=== PATIENT | female | born 1950 | race Caucasian/White ===

== ENCOUNTER 2017-12-21 11:02 | Emergency (ER) | payer BC, MEDICARE ==
[2017-12-21] MEDS ORDERED: Sodium Chloride 0.9% 10 ML Syringe FLUSH PRN (11:08)
--- NOTE | 2017-12-21 11:17 | EDM.PDOC ---
ED HPI GENERAL MEDICAL PROBLEM - General Chief Complaint: Neurological Problem Stated Complaint: [facility] Time Seen by Provider: 12/21/17 11:09 Source of Information: Reports: EMS, Family, Old Records History Limitations: Reports: No Limitations - History of Present Illness INITIAL COMMENTS - FREE TEXT/NARRATIVE: 67 yo female presents via EMS with acute onset approx 0930h today of acute confusion and inability to find correct words to say. Has not recognized some family members that she should know, others she does recognize. Has known afib. Is only on ASA for anticoagulation. Vitals stable per EMS. No hx of CVA. last spoke with Jada about 8 pm last night. Saw her walking about the home and dressing as she normally would do about 0800h today. Onset: Today Onset Date: 12/21/17 Onset Time: 09:30 Duration: Minutes:, Constant Location: Reports: Head Quality: Reports: Other (no known pain) Severity: Moderate Improves with: Reports: None Worsens with: Reports: None Context: Reports: Other (PHx of paroxysmal afib) Associated Symptoms: Reports: Confusion, Other (speach deficit). Denies: Fever/ Chills, Headaches, Nausea/Vomiting, Weakness Treatments PROCESSING MGR: Reports: Other (see below) (none) - Related Data Allergies Allergy/AdvReac Type Severity Reaction Status Date / Time Cephalosporins Allergy Hives Verified 12/21/17 11:09 morphine Allergy Itching Verified 12/21/17 11:09 Penicillins Allergy Cannot Verified 12/21/17 11:09 Remember cats Allergy Shortness Uncoded 12/21/17 11:09 of Breath dog Allergy Shortness Uncoded 12/21/17 11:09 of Breath dust mites Allergy Shortness Uncoded 12/21/17 11:09 of Breath mold Allergy Shortness Uncoded 12/21/17 11:09 of Breath Home Meds: Home Meds Ascorbic Acid 500 gm PO DAILY 02/07/13 [History] Calcium Carbonate [Calcium] 500 mg PO DAILY 02/07/13 [History] Carvedilol [Coreg] 25 mg PO BID 02/07/13 [History] Cetirizine HCl/Pseudoephedrine [ZyrTEC-D] 1 tab PO Q12H 02/07/13 [History] Garlic [Garlic Oil] 1,000 mg PO DAILY 02/07/13 [History] Levothyroxine 75 mcg PO DAILY 02/07/13 [History] MVI, Adult with Vitamin K [Infuvite Adult] 1 tab.chew PO DAILY 02/07/13 [History ] Magnesium Oxide [Mag-Oxide] 400 mg PO DAILY 02/07/13 [History] Mometasone Furoate [Nasonex] 1 inhalation INH BID 02/07/13 [History] Triamcinolone Acetonide [Triamcinolone Acetonide 0.1% Crm] 0 gm TOP ASDIRECTED PRN 02/07/13 [History] Vit D3 & K/Berberine HCl/Hops [Ostera] 400 ml PO DAILY 02/07/13 [History] Past Medical History HEENT History: Reports: Cataract Cardiovascular History: Reports: Afib [employer] DIRECT[employer] History: Reports: Endocrine/Metabolic History: Reports: Hypoparathyroidism Dermatologic History: Reports: Psoriasis - Infectious Disease History Infectious Disease History: Reports: Chicken Pox, Measles, Mumps ED ROS GENERAL - Review of Systems Review Of Systems: See Below Constitutional: Reports: No Symptoms HEENT: Reports: No Symptoms Respiratory: Reports: No Symptoms GI/Abdominal: Reports: No Symptoms : Reports: No Symptoms Musculoskeletal: Reports: No Symptoms Skin: Reports: No Symptoms Neurological: Reports: Confusion, Other (speech deficit) Psychiatric: Reports: No Symptoms - Physical Exam Exam: See Below Exam Limited By: No Limitations General Appearance: Alert, WD/WN, No Apparent Distress Eye Exam: Bilateral Eye: Normal Inspection, Other (Couldn't check EOMI due to patient not able to follow commands.) Ears: Normal External Exam, Normal Canal, Hearing Grossly Normal, Normal TMs Nose: Normal Inspection, Normal Mucosa, No Blood Throat/Mouth: Normal Inspection, Normal Lips, Normal Oropharynx, Normal Voice, No Airway Compromise Head Exam: Atraumatic, Normocephalic Neck: Normal Inspection, Supple, Non-Tender Respiratory/Chest: No Respiratory Distress, Lungs Clear, Normal Breath Sounds, No Accessory Muscle Use Cardiovascular: No Edema, Irregularly Irregular GI/Abdominal: Normal Bowel Sounds, Soft, Non-Tender, No Distention Neuro Exam (Abbreviated): Alert, CN II-XII Intact, Normal Reflexes, No Motor/ Sensory Deficits, Confused. No: Oriented Back Exam: Normal Inspection Extremities: Normal Inspection, Normal Range of Motion, Non-Tender, No Pedal Edema Psychiatric: Normal Affect, Normal Mood Skin Exam: Warm, Dry, Intact, Normal Color, No Rash Course - Vital Signs Text/Narrative:: [facility] neurologist called @ 1133h, Dr. Mendez consulted. Last Recorded V/S: Last Vital Signs Temp 36.6 C 12/21/17 11:28 Pulse 65 12/21/17 11:28 Resp 16 12/21/17 11:28 BP 139/56 L 12/21/17 11:28 Pulse Ox 96 12/21/17 11:28 - Orders/Labs/Meds Orders: Active Orders 24 hr Category Date Time Status Cardiac Monitoring [RC] .As Directed Care 12/21/17 11:08 Active Head wo Cont [CT] Stat Exams 12/21/17 11:08 Ordered BASIC METABOLIC PANEL,BMP [CHEM] Stat Lab 12/21/17 11:16 Received TROPONIN I [CHEM] Stat Lab 12/21/17 11:16 Received TSH ULTRASENSITIVE [CHEM] Stat Lab 12/21/17 11:16 Received UA W/MICROSCOPIC [URIN] Stat Lab 12/21/17 11:07 Ordered Sodium Chloride 0.9% [Saline Flush] Med 12/21/17 11:08 Active 10 ml FLUSH ASDIRECTED PRN Saline Lock Insert [OM.PC] Routine Oth 12/21/17 11:08 Ordered Medication Orders Sodium Chloride (Saline Flush) 10 ml FLUSH ASDIRECTED PRN PRN Reason: Keep Vein Open Labs: Laboratory Tests 12/21/17 Range/Units 11:16 WBC 5.8 (4.5-11.0) K/uL RBC 4.73 (3.30-5.50) M/uL Hgb 14.6 (12.0-15.0) g/dL Hct 42.4 (36.0-48.0) % MCV 90 (80-98) fL MCH 31 (27-31) pg MCHC 34 (32-36) % Plt Count 221 (150-400) K/uL Meds: Medications Generic Name Dose Route Start Last Admin Trade Name Freq PRN Reason Stop Dose Admin Sodium Chloride 10 ml 12/21/17 11:08 Saline Flush FLUSH ASDIRECTED PRN Keep Vein Open Discontinued Medications Generic Name Dose Route Start Last Admin Trade Name Freq PRN Reason Stop Dose Admin Diltiazem HCl 20 mg 12/21/17 11:33 Diltiazem IVPUSH 12/21/17 11:34 ONETIME ONE Midazolam HCl 2 mg 12/21/17 11:20 Versed 1 Mg/Ml IVPUSH 12/21/17 11:21 ONETIME ONE - Radiology Interpretation Free Text/Narrative:: Head CT scan without contrast-no bleed or other pathology noted. CT Results Date: 12/21/17 Departure - Departure Time of Disposition: 11:50 Disposition: DC/Tfer to Acute Hospital 02 Condition: Fair Clinical Impression: Paroxysmal atrial fibrillation CVA (cerebral vascular accident) Qualifiers: CVA mechanism: unspecified Qualified Code(s): I63.9 - Cerebral infarction, unspecified - Discharge Information *PRESCRIPTION DRUG MONITORING PROGRAM REVIEWED*: Not Applicable *COPY OF PRESCRIPTION DRUG MONITORING REPORT IN PATIENT KP: Not Applicable Referrals: PCP,None [Primary Care Provider] - Forms: ED Department Discharge - My Orders Last 24 Hours: My Active Orders 12/21/17 11:07 UA W/MICROSCOPIC [URIN] Stat 12/21/17 11:08 Cardiac Monitoring [RC] .As Directed Head wo Cont [CT] Stat Sodium Chloride 0.9% [Saline Flush] 10 ml FLUSH ASDIRECTED PRN Saline Lock Insert [OM.PC] Routine 12/21/17 11:16 BASIC METABOLIC PANEL,BMP [CHEM] Stat TROPONIN I [CHEM] Stat TSH ULTRASENSITIVE [CHEM] Stat - Assessment/Plan Last 24 Hours: My Active Orders 12/21/17 11:07 UA W/MICROSCOPIC [URIN] Stat 12/21/17 11:08 Cardiac Monitoring [RC] .As Directed Head wo Cont [CT] Stat Sodium Chloride 0.9% [Saline Flush] 10 ml FLUSH ASDIRECTED PRN Saline Lock Insert [OM.PC] Routine 12/21/17 11:16 BASIC METABOLIC PANEL,BMP [CHEM] Stat TROPONIN I [CHEM] Stat TSH ULTRASENSITIVE [CHEM] Stat
[2017-12-21] MEDS ORDERED: Midazolam 1 MG/ML 2 ML SDV IVPUSH ONE (11:20)
[2017-12-21] MEDS ORDERED: Diltiazem 25 MG/5 ML SDV IVPUSH ONE (11:33)
--- NOTE | 2017-12-21 11:43 | CT ---
Head wo Cont CLINICAL HISTORY: Acute confusion COMPARISON: None TECHNIQUE: Transverse scans were obtained from the base of the skull through the vertex without IV co ntrast on a multislice, multidetector CT scanner. Auto dosage reduction and iterative reconstruction techniques employed. FINDINGS: No focal abnormal parenchymal density is identified. There is no mass effect, hemorrhage, o r extraaxial collection. The basal cisterns and sulci over the convexities are mildly prominent. The ventricles are normal for age. There are some basal ganglia calcifications IMPRESSION: No evidence of mass lesion, hemorrhage or extra-axial collection
[2017-12-21 12:19] VITALS: BP 107/56
== END 2017-12-21 12:30 ==
LOC: JP.ED 11:02
DX: I63.9 Cerebral infarction, unspecified (principal); I48.0 Paroxysmal atrial fibrillation; I48.91 Unspecified atrial fibrillation; E20.9 Hypoparathyroidism, unspecified; Z88.8 Allergy status to other drugs, medicaments and biological substances; Z88.5 Allergy status to narcotic agent; Z79.899 Other long term (current) drug therapy
CPT/HCPCS: 36415; 70450; 80048; 84443; 84484; 85027; 96374; 96375; 99285; J2250; J3490; J7050; J7060